=== PATIENT | male | born 1985 | race Caucasian/White ===

== ENCOUNTER 2021-12-08 14:26 | Emergency (ER) | payer BC, OTHER ==
[2021-12-08] MEDS ORDERED: Lidocaine 1% (PF) 30 ML VIAL ONE (17:18)
[2021-12-08] MEDS ORDERED: Bacitracin 1 PK ONE (18:08)
== END 2021-12-08 18:18 | disposition home or self-care (01) ==
LOC: CSHERS 14:26
DX: S81.822A Laceration with foreign body, left lower leg, initial encounter (principal); S80.811A Abrasion, right lower leg, initial encounter; F17.290 Nicotine dependence, other tobacco product, uncomplicated; W45.8XXA Other foreign body or object entering through skin, initial encounter; W17.89XA Other fall from one level to another, initial encounter
CPT/HCPCS: 12004; J2001